=== PATIENT | female | born 1995 | race Caucasian/White ===

== ENCOUNTER 2023-04-25 19:30 | Emergency (ER) | payer OTHER, SELFPAY ==
[2023-04-25 19:34] VITALS: BP 117/82
[2023-04-25 19:55] VITALS: BP 109/76
[2023-04-25 20:00] VITALS: BP 111/72
[2023-04-25 20:28] LABS: % Basophils 0.5 % (0-2); % Eosinophils 1.4 % (0-6); % Immature Granulocytes 0.2 % (0-0.5); % Lymphocytes 40.8 % (20.5-51.1); % Monocytes 6.6 % (1.7-9.3); % Neutrophils 50.5 % (42.2-75.2); Absolute Eosinophils 0.1 10^3/uL (0-0.7); Absolute Lymphocytes 3.6 10^3/uL (1.2-3.4); Absolute Monocytes 0.6 10^3/uL (0.1-0.6); Absolute Neutrophils 4.4 10^3/uL (1.4-6.5); Hematocrit 35.1 % (37.0-47.0); Hemoglobin 11.8 g/dL (12.0-16.0); Mean Corp Hgb Conc. 33.6 g/dL (33.0-37.0); Mean Corpuscular Hgb 27.5 pg (27.0-31.0); Mean Corpuscular Volume 81.8 fL (81.0-99.0); Mean Platelet Volume 10.3 fL (7.4-10.4); Nucleated Red Blood Cells % 0 %; Platelet Count 304 10^3/uL (130-400); Red Blood Cell Count 4.29 10^6/uL (4.20-5.40); Red Cell Dist. Width 14.2 % (11.5-14.5); White Blood Cell Count 8.7 10^3/uL (4.8-10.8)
[2023-04-25 20:38] LABS: D-Dimer < 0.27 ug/mlFEU (0.00-0.50)
[2023-04-25 20:42] LABS: ALT (SGPT) 10 U/L (0-35); AST (SGOT) 19 U/L (14-36); Albumin 4.1 g/dl (3.5-5.0); Alkaline Phosphatase 76 U/L (38-126); Blood Urea Nitrogen 14 mg/dl (7-17); Carbon Dioxide 24 mmol/L (22-30); Chloride 106 mmol/L (98-107); Glucose 93 mg/dl (70-99); Sodium 136 mmol/L (135-145); Total Bilirubin 0.7 mg/dl (0.2-1.3); Total Protein 6.9 g/dl (6.3-8.2); eGFR > 60.00
[2023-04-25 20:45] LABS: Troponin I < 0.012 ng/ml
[2023-04-25 21:00] VITALS: BP 105/77
--- NOTE | 2023-04-25 21:53 | ED.GENMED ---
History of Present Illness
General
Chief Complaint: Chest Pain
Source: patient and spouse
Exam Limitations: none
Time Seen by Provider: 04/25/23 19:38
Nursing documentation reviewed up to this point in time: agreed with
Travel History
Have you had any contact with someone who has COVID-19?: No
Do you have any symptoms of coronavirus? Fever > 100 degrees, chills, cough, shortness of breath, sore throat, loss of taste or smell, muscle aches, or headache?: No
History of Present Illness
History of Present Illness:
27-year-old female with no significant chronic medical issues who presents to the emergency room for evaluation of chest pain. 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
dental hygienist). She says that she has had intermittent chest pain throughout the day. She describes a tight sensation in the center of her chest that does not radiate. No clear triggering or relieving factors noted that she notably reports no
exertional component. She says she has had intermittent mild headache, paresthesias in the left arm and mild dizziness throughout the day as well although the symptoms do not necessarily come at the same time and are not necessarily related to
chest pain she says. She denies any shortness of breath. She denies any palpitations. She denies any nausea, vomiting, diarrhea. No abdominal pain. She has not had any recent fever chills or URI type symptoms. She denies similar symptoms in
the past. She denies any known cardiac history. She denies any family history of early cardiac . She denies any recent travel. She says she is a non-smoker denies any drug use, only occasional alcohol she says.
Past History
Past History
ED Past Medical History: None
ED Past Surgical History: None
Social History
Tobacco: Non-smoker
Alcohol: None
Drug: None
Personal:
Living: with family
Employment: Employed
Family History
Family History: Other (Noncontributory)
Review of Systems
Review of Systems
All Other Systems: ROS reviewed and negative except as documented in HPI and ROS
Constitutional: Denies fever or chills
EENT: Denies sore throat or runny nose
Respiratory: Denies cough or trouble breathing
Cardiac: Reports chest pain; Denies diaphoresis, palpitations or syncope
ABD/GI: Denies abdominal pain, nausea, vomiting or diarrhea
: Denies flank pain
Musculoskeletal: Denies neck pain or back pain
Neurological: Reports dizzy, headache and other (Paresthesias left arm); Denies weakness or numbness
Phy Exam
Physical Exam
Physical Exam:
General: Awake, alert, oriented x3; no acute distress
Head: Normocephalic, atraumatic
Eyes: Conjunctiva normal, EOMI, pupils equal round and reactive to light bilateral
Throat: Airway intact, handling secretions
Neck: Trachea midline, supple without meningismus
Lungs: Clear to auscultation bilaterally, no wheezing, rales, rhonchi
Heart: Regular rate and rhythm, no murmurs, gallops, or rubs; no chest wall tender
Abd: Soft, non distended, nontender
Neuro: Cranial nerves grossly intact, speech fluid
Skin: no rash
Extremities: No edema in extremities, good strong and equal pulses in all extremities
Scores
Heart Failure Risk
Heart Failure Risk Score: Not Applicable
Heart Score for Chest Pain Patients
STEMI patient?: No
History: Slightly or Non-Suspicious
ECG: Normal
Age: </= 45 years
Risk Factors: No Risk Factors
Troponin: </= Normal Limit
Heart Score for Chest Pain Patients: 0
Heart Score Risk: 2.5% MACE over next 6 weeks
PE Wells Score
Symptoms of DVT: No
No alternative diagnosis better explains the illness: No
Tachycardia with pulse > 100: No
Immobilization (>=3 days) or surgery within previous 4 weeks: No
Prior history of DVT or pulmonary embolism: No
Presence of hemoptysis: No
Presence of malignancy: No
Pulmonary Embolism Risk Score: 0
Probability of PE: Pt is low risk
Withdrawal Assessment of Alcohol
Withdrawal Assessment Completed?: Not applicable
Course
Orders/Labs/Results
Orders:
Orders
04/25/23 19:33
Electrocardiogram (*1) Urgent
Reason for Study: Chest Pain
04/25/23 19:39
Electrocardiogram (*1) Urgent
Reason for Study: Chest Pain
EKG- Treatment ONCE
04/25/23 19:40
CR Chest - 2 Views Urgent
Comment:
Reason For Exam: cp
04/25/23 20:08
Complete Blood Count/With Diff Urgent
Comprehensive Metabolic Panel Urgent
D-Dimer Urgent
Troponin I Urgent
04/25/23 21:49
Test Result ONCE
04/25/23 21:50
HCG, Serum Qualitative Screen Urgent
Troponin I Urgent
Abnormal Lab Results
04/25/23
20:08
Hgb 11.8 L g/dL
(12.0-16.0)
Hct 35.1 L %
(37.0-47.0)
Absolute Lymphs (auto) 3.6 H 10^3/uL
(1.2-3.4)
04/25/23 20:08
04/25/23 20:08
Vital Signs
Initial and Last Documented VS:
Initial Vital Signs
Temp Pulse Resp BP Pulse Ox
36.8 C 75 18 117/82 100
04/25/23 19:34 04/25/23 19:34 04/25/23 19:34 04/25/23 19:34 04/25/23 19:34
Last Documented Vital Signs
Temp Pulse Resp BP Pulse Ox
36.8 C 62 14 105/77 98
04/25/23 19:34 04/25/23 21:00 04/25/23 21:00 04/25/23 21:00 04/25/23 21:00
MDM/Problems Addressed
Differential Diagnosis Includes:
GERD, costochondritis, pleurisy, anxiety, pericarditis; by history this does not sound like ACS, pulmonary embolism, aortic dissection or other chest pain emergency
MDM/Problems Addressed:
27-year-old female presents for evaluation of intermittent chest pains last for few minutes at a time throughout the day today. She has other various symptoms which have been intermittent but not necessarily related to chest pain including some
mild dizziness, headache, paresthesias in the left arm. Vital signs here are all within normal limits. Physical exam as above. EKG shows no concerning changes. Plan to place an IV check labs including CBC, CMP, troponins, D-dimer. Will check a
chest x-ray. Monitor closely reassess after the above.
Labs reviewed: CBC unremarkable, CMP no clinically significant abnormalities. Troponin negative x 1, D-dimer negative. Chest x-ray reviewed by me no acute disease. Patient remains well-appearing with reassuring vital signs. Continue to monitor.
Repeat troponin negative. Patient remains well-appearing with reassuring vitals and exam. I think she is stable for discharge at this point, will follow-up with her primary care physician as an outpatient. She feels comfortable with this plan.
Spoke to her about return precautions and all questions were answered.
*Radiology
Radiology exam reviewed: preliminary read by ED provider and radiology read reviewed
*Pulse Oximetry
Patient hypoxic: no
*EKG
Interpreted by ED Provider?: Yes
Comparison EKG: no comparison EKG present
Heart Rate: 64
Rate: normal
Rhythm: sinus
[place]: normal axis
Interval: normal interval
QRS Pattern: normal QRS
Ischemia: no ischemia
*Critical Care Note
Total Time (30-74mins, 75-104mins- exclusive of procedures): Not Applicable
Data Reviewed
Source: patient and spouse
ED Attending Note
-
Portions of this chart may have been created with voice recognition software.� Occasional wrong word or��sound alike� substitutions may have occurred due to the inherent limitations of voice recognition software.
Discharge Plan
Departure
Patient Disposition: Home (Routine Discharge)
Date of Disposition: 04/25/23
Time of Disposition: 22:44
Patient with high blood pressure during this ER visit?: No
Discharge Problem:
Chest pain
Instructions: Chest Pain PCP Follow Up
Prescriptions:
No Action
PNV cmb#95-ferrous fumarate-FA [] 1 EACH tablet
1 ea PO DAILY
ferrous sulfate [FeroSul] 325 mg (65 mg iron) Tablet
325 mg PO BID Qty: 0 0RF
ibuprofen 600 mg Tablet
400 mg PO Q4HPRN PRN (Reason: moderate pain/cramps) Qty: 0 0RF
sennosides-docusate sodium [Senna Plus] 8.6-50 mg Tablet
1 tab PO DAILYPRN PRN (Reason: constipation) Qty: 0 0RF
acetaminophen 325 mg Tablet
650 mg PO Q4HPRN PRN (Reason: mild pain) Qty: 0 0RF
Referrals:
Olga Padilla DO [Family Provider] - Call in 1-3 days for appt
Activity Restrictions/Additional Instructions:
Thank you for visiting the Emergency Department at [facility].
1. Please schedule a follow up appointment as directed. Call first thing tomorrow morning to make an appointment.
2. If indicated, please take your medications as instructed and indicated on discharge paperwork.
3. If any of your symptoms do not improve, or persist, or become more severe within 6-12 hours, please return to the emergency department for further care.
4. Please return to the emergency department if you develop a headache, neck pain/stiffness, fever greater than 100.4F, chest pain, shortness of breath, persistent nausea, vomiting, slurred speech, difficulty walking, numbness/tingling, weakness,
signs of infection or any other symptoms that are worrisome to you.
Please call [phone] if you have any questions.
Interventions
Interventions:
*Risk Screen - Suicide Last Done: 04/25/23 19:34
*General Assessment Last Done: 04/25/23 19:34
*Neglect/Abuse Screening Last Done: 04/25/23 19:34
ED- Cardiac Assessment Last Done: 04/25/23 20:48
[2023-04-25 22:00] VITALS: BP 111/82
[2023-04-25 22:20] LABS: HCG, Serum Qualitative Screen Negative; Troponin I < 0.012 ng/ml
== END 2023-04-25 22:52 | disposition home or self-care (01) ==
LOC: EMR 19:30
PROVIDERS: EMERGENCY PHYSICIAN Emergency Medicine; FAMILY PHYSICIAN Family Medicine
DX: R07.9 Chest pain, unspecified (principal); R42 Dizziness and giddiness; R51.9 Headache, unspecified; R20.2 Paresthesia of skin
CPT/HCPCS: 99285; 71046; 80053; 84484; 84703; 85025; 85379; 93005

== ENCOUNTER 2024-11-16 03:22 | Emergency (ER) | payer OTHER, SELFPAY ==
[2024-11-16 03:25] VITALS: BP 132/96
[2024-11-16 03:39] VITALS: BP 117/83
[2024-11-16 03:40] VITALS: BMI 25.5
--- NOTE | 2024-11-16 03:56 | ED.GENMED ---
History of Present Illness
General
Chief Complaint: Headache
Source: patient
Exam Limitations: none
Time Seen by Provider: 11/16/24 03:46
Nursing documentation reviewed up to this point in time: agreed with
History of Present Illness
History of Present Illness:
The patient is a 29-year-old female who presents with a headache localized on the left side, radiating into the jaw, which began on Saturday. The patient also reports the presence of a painful lump behind the left ear that she noticed at around 7:00
PM last night. She describes the headache as being present since Saturday, whereas the lump became noticeable and painful more recently. The patient denies associated middle ear infection symptoms. No history of similar episodes in the past. She has
not been taking anything for discomfort. She has not had a fever nor chills. No sore throat no nasal congestion. No vision difficulty. No nausea nor vomiting. She has not noticed a rash.
Last menstrual period 1 week ago, normal and on time. She denies risk of .
She takes no medicines on a daily basis.
Past History
Past History
ED Past Medical History: None
ED Past Surgical History: None
Social History
Tobacco: Non-smoker
Alcohol: None
Drug: None
Personal:
Living: with family
Employment: Employed
Family History
Family History: Other (Noncontributory)
Phy Exam
Physical Exam
Physical Exam:
GENERAL: 29-year-old woman appears her stated age, bright and alert, pleasant, appears in no acute distress. Vital signs within normal limits.
EYE: pupils equal and reactive. Extraocular muscles intact. Anicteric
NECK: Supple, nontender, no meningismus, no significant adenopathy.
ENT: posterior pharynx is clear, oral mucosa is moist. TM clear b/l, nares patent. There is a 1 cm mildly tender, mobile soft tissue mass left posterior auricular. No surrounding erythema nor rash. No scalp inflammation nor rash. No dental
tenderness. No mandibular tenderness.
CARDIAC: Regular rate and rhythm. no murmur.
LUNGS: Clear breath sounds bilaterally, no acute respiratory distress, no wheezes/rales/rhonchi
ABDOMEN: Soft, nondistended, without focal tenderness
NEUROLOGICAL: Alert and oriented x3, no focal neuro deficits. Gait is greenberg and steady.
SKIN: Warm and dry, normal color, skin intact. No rash.
MUSCULOSKELETAL: No C/C/E. peripheral pulses are full and equal b/l. No palpable tenderness.
PSYCH: Normal and appropriate interaction.
Course
Orders/Labs/Results
Orders:
Orders
11/16/24 03:55
Amoxicillin [Amoxil] 1,000 mg PO NOW STA
Ibuprofen [Motrin] 600 mg PO NOW STA
Vital Signs
Initial and Last Documented VS:
Initial Vital Signs
Temp Pulse Resp BP Pulse Ox
97.9 F 92 20 132/96 100
11/16/24 03:25 11/16/24 03:25 11/16/24 03:25 11/16/24 03:25 11/16/24 03:25
Last Documented Vital Signs
Temp Pulse Resp BP Pulse Ox
97.9 F 92 20 117/83 100
11/16/24 03:25 11/16/24 03:25 11/16/24 03:25 11/16/24 03:39 11/16/24 03:40
MDM/Problems Addressed
Differential Diagnosis Includes:
The Differential Diagnosis includes, in no particular order and is not limited to:
1. Lymphadenitis
2. Temporomandibular Joint Disorder
3. Mastoiditis
4. Migraine
5. Dental Abscess
6. Sinusitis
7. Parotitis
8. Otitis Externa
9. Tension Headache
10. Branchial Cleft Cyst
MDM/Problems Addressed:
Left posterior auricular soft tissue nodule appears consistent with focal adenitis versus posterior auricular cyst.
Overall well in appearance.
Patient's complaints of headache has been primarily left posterior auricular in nature corresponding with posterior auricular nodule.
There is no neck tenderness nor cervical adenopathy.
Overall exam is benign. No recent fever.
At this point no indication for imaging nor laboratory studies.
Will initiate a course of amoxicillin for potential adenitis. Will give ibuprofen for pain.
Recommend supportive measures, local heat. Elevating head of bed when sleeping.
Recommend prompt follow-up with PCP for recheck.
*Pulse Oximetry
SaO2: 100
Oxygen Mode of Delivery: Room air
Patient hypoxic: no
*Critical Care Note
Total Time (30-74mins, 75-104mins- exclusive of procedures): Not Applicable
Patient Management
Social determinants of health affecting care: Strong social support and Other (No reported barriers to follow-up with PCP.)
ED Attending Note
-
Portions of this chart may have been created with voice recognition software.� Occasional wrong word or��sound alike� substitutions may have occurred due to the inherent limitations of voice recognition software.
Discharge Plan
Departure
Patient Disposition: Home (Routine Discharge)
Date of Disposition: 11/16/24
Time of Disposition: 04:04
Patient with high blood pressure during this ER visit?: No
Condition: Good
Discharge Problem:
Left posterior auricular adenitis
Instructions: Swollen lymph nodes in adults
Prescriptions:
New
amoxicillin 875 mg tablet
875 mg PO BID Qty: 14 0RF
ibuprofen 600 mg tablet
600 mg PO Q6H PRN (Reason: fever or pain) Qty: 30 0RF
No Action
PNV no.95-ferrous fumarate-FA [] 1 EACH tablet
1 ea PO DAILY
ferrous sulfate [FeroSul] 325 mg (65 mg iron) Tablet
325 mg PO BID Qty: 0 0RF
ibuprofen 600 mg Tablet
400 mg PO Q4HPRN PRN (Reason: moderate pain/cramps) Qty: 0 0RF
sennosides-docusate sodium [Senna Plus] 8.6-50 mg Tablet
1 tab PO DAILYPRN PRN (Reason: constipation) Qty: 0 0RF
acetaminophen 325 mg Tablet
650 mg PO Q4HPRN PRN (Reason: mild pain) Qty: 0 0RF
Referrals:
Olga Padilla DO [[facility]] - Call in 1-3 days for appt
Interventions
Interventions:
*Risk Screen - Suicide Last Done: 11/16/24 03:25
*General Assessment Last Done: 11/16/24 03:25
*Neglect/Abuse Screening Last Done: 11/16/24 03:25
*ED- Fall Risk Assessment Last Done: 11/16/24 03:25
*ED COVID-19 Vaccine History Last Done: 11/16/24 03:25
ED- Neurological Assessment Last Done: 11/16/24 03:41
Discharge Date and Time
Print Language: LIBERIAN
[2024-11-16] MEDS: MOTRIN 600 MG PO (04:06)
== END 2024-11-16 04:18 | disposition home or self-care (01) ==
LOC: EMR 03:22
PROVIDERS: EMERGENCY PHYSICIAN Emergency Medicine
DX: L04.0 Acute lymphadenitis of face, head and neck (principal); R51.9 Headache, unspecified; R11.0 Nausea
CPT/HCPCS: 99283